=== PATIENT | female | born 1990 | race African-American/Black ===

== ENCOUNTER 2021-02-22 17:35 | Emergency (ER) | payer MEDICAID ==
[~2021-02-22] VITALS: Ht 157.5 cm; Wt 111.0 kg
[2021-02-22] MEDS ORDERED: IV NORMAL SALINE 1000ML BAG 1,000 ML IV ONE (17:45)
--- NOTE | 2021-02-22 17:55 | PHYS DOC ---
Past Medical History Past Medical History: Anxiety General Adult EDM: Chief Complaint: RAPID HEART RATE HPI: HPI: Patient is a 31 year old female with history of anxiety, thalassemia with anemia, who presents today complaining of rapid heart rate that began yesterday. Patient states she had an episode yesterday where her heart was racing but it stopped after acouple minutes. She states she has slight Shortness of breath. She states today she took her hair down, then took a nap and woke up with her heart racing. Patient states she felt slightly short of breath. Denies any fever, coughing, congestion. She states she just finished COVID- quarantine after being diagnosed with Covid February 09. She states she has had episodes of tachycardia multiple times before and is usually able to get herself out of it. Review of Systems: Review of Systems: Constitutional: Denies fever or chills. [] Eyes: Denies change in visual acuity. [] HENT: Denies nasal congestion or sore throat. [] Respiratory: Reports shortness of breath. Denies cough Cardiovascular: Reports rapid heart rate. Denies chest pain or edema. [] GI: Denies abdominal pain, nausea, vomiting, bloody stools or diarrhea. [] : Denies dysuria. [] Musculoskeletal: Denies back pain or joint pain. [] Integument: Denies rash. [] Neurologic: Denies headache, focal weakness or sensory changes. [] Endocrine: Denies polyuria or polydipsia. [] Lymphatic: Denies swollen glands. [] Psychiatric: Denies depression or anxiety. [] Heart Score: C/O Chest Pain: N/A Risk Factors: Risk Factors: DM, Current or recent (<one month) smoker, HTN, HLP, family history of CAD, obesity. Risk Scores: Score 0 - 3: 2.5% MACE over next 6 weeks - Discharge Home Score 4 - 6: 20.3% MACE over next 6 weeks - Admit for Clinical Observation Score 7 - 10: 72.7% MACE over next 6 weeks - Early Invasive Strategies Current Medications: Current Medications Medications (Trade) Dose Ordered Sig/Guerline Start Time Stop Time Status Last Admin Dose Admin Sodium Chloride 1,000 ml @ 1,000 mls/hr 1X ONCE 02/22/21 17:45 02/22/21 18:44 UNV Physical Exam: PE: Constitutional: Well developed, well nourished, no acute distress, non-toxic appearance. [] HENT: Normocephalic, atraumatic, bilateral external ears normal, oropharynx moist, no oral exudates, nose normal. [] Eyes: PERRLA, EOMI, conjunctiva normal, no discharge. [] Neck: Normal range of motion, no tenderness, supple, no stridor. [] Cardiovascular: Tachycardic Lungs & Thorax: Bilateral breath sounds clear to auscultation [] Abdomen: Bowel sounds normal, soft, no tenderness, no masses, no pulsatile masses. [] Skin: Warm, dry, no erythema, no rash. [] Back: No tenderness, no CVA tenderness. [] Extremities: No tenderness, no cyanosis, no clubbing, ROM intact, no edema. [] Neurologic: Alert and oriented X 3, normal motor function, normal sensory func tion, no focal deficits noted. [] Psychologic: Affect normal, judgement normal, mood normal. [] EKG: EK interpreted by Dr. Jorge sinus tachycardia heart rate 130 no STEMI Radiology/Procedures: Radiology/Procedures: [] Course & Med Decision Making: Course & Med Decision Making Pertinent Labs and Imaging studies reviewed. (See chart for details) This is a 31-year-old female patient presenting to the ED today complaining of a rapid heart rate that occurred yesterday in the occurred a couple minutes prior to coming to the ED. patient states she has had similar episodes of tachycardia and usually she is able to get herself out of rate with relaxation. Patient arrives in the ED with temperature of 98.1, heart rate of 140, blood pressure 174/81, O2 sats 99% on room air. Patient's work-up is negative for any acute findings. Patient was given IV fluids in the ED. Heart rate has down as low as 98. D/c to home. Recommended assistant facility manager as well as [facility] follow-up [place] Disclaimer: [place] Disclaimer: This electronic medical record was generated, in whole or in part, using a voice recognition dictation system. Departure Departure Impression: Primary Impression: Anxiety Additional Impression: Tachycardia Disposition: 01 DC HOME SELF CARE/HOMELESS Condition: STABLE Referrals: MARISA MARTIN MD follow up in one week Patient Instructions: Anxiety and Panic Attacks, Nonspecific Tachycardia Additional Instructions: You were evaluated in the emergency room for anxiety and tachycardia. We highly recommend you follow-up with [facility] for anxiety as well as the assistant facility manager provided for tachycardia/fast heart rate. Come back to the ED at any point symptoms worsen. MARISOL WOODS ENROLLMENT MANAGEMENT DIRECTOR Feb 22, 2021 17:55
[2021-02-22 17:58] LABS: BASO # 0.1 x10^3/uL (0.0-0.2); BASO % 1 % (0-3); EOS # 0.2 x10^3/uL (0.0-0.7); EOS % 3 % (0-3); HEMATOCRIT 38.2 % (36.0-47.0); HEMOGLOBIN 12.1 g/dL (12.0-15.5); LYMPH # 3.2 x10^3/uL (1.0-4.8); LYMPH % 50 % (24-48); MEAN CORPUSCULAR HEMOGLOBIN 23 pg (25-35); MEAN CORPUSCULAR HGB CONC 32 g/dL (31-37); MEAN CORPUSCULAR VOLUME 73 fL (79-100); MONO # 0.7 x10^3/uL (0.0-1.1); MONO % 11 % (0-9); NEUT # 2.2 x10^3/uL (1.8-7.7); NEUT % 35 % (31-73); PLATELET COUNT 375 x10^3/uL (140-400); RED BLOOD COUNT 5.24 x10^6/uL (3.50-5.40); RED CELL DISTRIBUTION WIDTH 14.7 % (11.5-14.5); WHITE BLOOD COUNT 6.4 x10^3/uL (4.0-11.0)
[2021-02-22 18:44] LABS: BILIRUBIN,URINE NEGATIVE (NEG); CLARITY,URINE CLEAR; COLOR,URINE YELLOW; NITRITE,URINE NEGATIVE (NEG); PROTEIN,URINE NEGATIVE (NEG-TRACE); UROBILINOGEN,URINE 0.2 mg/dL (0.2 mg/dL)
[2021-02-22 18:51] LABS: BACTERIA,URINE MODERATE /HPF (0-FEW); RBC,URINE 0 /HPF (0-2)
[2021-02-22 18:57] LABS: CALCIUM 8.8 mg/dL (8.5-10.1); CREATININE 0.8 mg/dL (0.6-1.0); GFR 83.1; POTASSIUM 3.2 mmol/L (3.5-5.1)
[2021-02-22 19:01] LABS: BARBITURATES NEG (NEG); BENZODIAZEPINES NEG (NEG); CANNABINOIDS NEG (NEG); COCAINE NEG (NEG); METHADONE NEG (NEG); OPIATES NEG (NEG); PHENCYCLIDINE NEG (NEG)
[2021-02-22 19:02] LABS: ALBUMIN 3.6 g/dL (3.4-5.0); AMPHETAMINE/METHAMPHETAMINE NEG (NEG); TOTAL BILIRUBIN 0.7 mg/dL (0.2-1.0); TOTAL PROTEIN 7.3 g/dL (6.4-8.2)
--- NOTE | 2021-02-22 19:37 | EKG ---
[facility] [address] [place] [address] Test Date: 2021-02-22 Test Time: 17:44:53 Pat Name: KARO FARNSWORTH Department: Room: Gender: F Electric Lineman: : 1990 Requested By: MARISOL WOODS Order Number: [id number] Reading MD: Measurements Intervals [place] Rate: 132 P: 245 SC: 86 QRS: 68 QRSD: 90 T: 61 QT: 340 QTc: 507 Interpretive Statements SUPRAVENTRICULAR TACHYCARDIA OTHERWISE NORMAL ECG RI6.02 No previous ECG available for comparison
[2021-02-22] MEDS ORDERED: POTASSIUM CHLORIDE 20 MEQ TABLET.ER. PO ONE (19:45)
[2021-02-22] MEDS ORDERED: ALPRAZolam 0.5 MG TABLET PO ONE (20:00)
[2021-02-22 20:06] VITALS: BP 157/67
--- NOTE | 2021-02-22 20:25 | RAD ---
XR CHEST 1V 02/22/2021 7:10 PM INDICATION: Tachycardia COMPARISON: None available TECHNIQUE: Portable frontal view of the chest is provided. FINDINGS: The cardiomediastinal silhouette is within normal limits. Lungs are clear. Focal soft tissue attenuat ion is identified along the right paraspinal stripe within the mid to lower thoracic spine. There are no significant pleural effusions. There is no pulmonary vascular congestion. No pneumothora x. No suspicious osseous abnormality. IMPRESSION: There is no acute cardiopulmonary process. Focal soft tissue attenuation identified along the right paraspinal stripe in the mid to lower thorac ic spine. Further characterization with CT chest could be of benefit. Electronically signed by: Aviva Dorman MD (02/22/2021 8:23 PM) [facility]
== END 2021-02-22 20:40 | disposition home or self-care (01) ==
LOC: ER 17:35
DX: F41.9 Anxiety disorder, unspecified (principal); R00.0 Tachycardia, unspecified; R06.02 Shortness of breath
CPT/HCPCS: 36415; 71045; 80053; 80307; 81001; 81025; 83735; 83880; 84484; 85025; 85379; 87086; 93005; 96360; 99285; J7030